=== PATIENT | male | born 2000 | race Caucasian/White ===

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

== ENCOUNTER → 2025-02-04 | Outpatient (CLI) | payer BC ==
[2025-02-05 12:23] LABS: Trichomonas vaginalis (AMP) NOT DETECTED (NEGATIVE)
[2025-02-05 12:47] LABS: GC DNA AMPLIFICATION NEGATIVE (NEGATIVE)
== END ==
LOC: M LAB 15:59
PROVIDERS: ATTEND Student in an Organized Health Care Education/Training Program
DX: M54.50 Low back pain, unspecified (principal)